=== PATIENT | female | born 1985 | race Caucasian/White ===

== ENCOUNTER 2017-01-27 02:47 | Emergency (ER) | payer OTHER | END 2017-01-27 03:55 | disposition home or self-care (01) | LOC: ER1 02:47 | DX: J06.9 Acute upper respiratory infection, unspecified (principal); B34.9 Viral infection, unspecified; I10 Essential (primary) hypertension; F17.210 Nicotine dependence, cigarettes, uncomplicated; Z88.8 Allergy status to other drugs, medicaments and biological substances | CPT/HCPCS: 99282; J1100; Q0162 ==

== ENCOUNTER 2017-03-07 07:51 | Emergency (ER) | payer SELFPAY ==
[2017-03-07 09:15] LABS: HEMOGLOBIN 12.3 gm/dl (12.3-15.3); RED BLOOD COUNT 4.45 M/UL (4.00-5.10)
[2017-03-07 09:38] LABS: BUN/CREATININE RATIO 13 (0-10)
== END 2017-03-07 13:00 | disposition home or self-care (01) ==
LOC: ER1 07:51
PROVIDERS: Emergency Medicine
DX: R07.9 Chest pain, unspecified (principal); F41.9 Anxiety disorder, unspecified; Z79.899 Other long term (current) drug therapy
CPT/HCPCS: 36415; 71020; 80048; 84484; 85025; 85379; 93005; 96360; 99285; J7050; Q9963